=== PATIENT | female | born 1940 | race Caucasian/White ===

== ENCOUNTER → 2016-08-13 | Outpatient (CLI) | payer OTHER ==
[~2016-08-13] MED LIST: AMOX500C3 PO; ASCA500 PO; ASPEC81 PO; CALC500C70 PO; CEPH500C2 PO; CHOL100010 PO; CNT PO; FLNIN NAE; HYDC25 PO; LISI5TAB3 PO; LXT; OMEG10007 PO; OXYC-57 PO; OXYSR10 PO; PRAV20TA PO; VLSCR15; XRL10 PO; [UNRECOGNIZED DRUG - OTHER]; garlic
--- NOTE | 2016-08-13 15:07 | MAMMOGRAPHY REPORT ---
BILATERAL DIGITAL SCREENING MAMMOGRAM TOMOSYNTHESIS WITH CAD: 08/13/2016 CLINICAL HISTORY: Routine screening. Patient has no complaints. TECHNIQUE: Breast tomosynthesis in addition to standard 2D mammography was performed. Current study was also evaluated with a Computer Aided Detection (CAD) system. COMPARISON: Comparison is made to exams dated: 08/08/2015 mammogram, 08/06/2014 mammogram, 08/02/2013 mammogram, 08/01/2012 ultrasound, 08/01/2012 mammogram, and 11/23/2011 mammogram - [facility]. BREAST COMPOSITION: The tissue of both breasts is heterogeneously dense, which may obscure small ma sses. FINDINGS: No suspicious masses, calcifications, or areas of architectural distortion are noted in e ither breast. There has been no significant interval change compared to prior exams. A linear scar marker denotes a scar on the right upper inner breast. Bilateral benign appearing calcifications ar e not significantly changed. A biopsy marker clip is again noted in the left upper outer quadrant. Bilateral circumscribed benign appearing masses are stable compared to prior exams. IMPRESSION: ACR BI-RADS CATEGORY 2: BENIGN There is no mammographic evidence of malignancy. A 1 year screening mammogram is recommended. The p atient will receive written notification of the results. Approximately 10% of breast cancers are not detected with mammography. A negative mammographic repor t should not delay biopsy if a clinically suggestive mass is present. Suzy Edwards M.D. /:08/13/2016 12:35:35 Assistant Scientist: Arin BANEGAS)(Amadeo), [facility] letter sent: Normal 1/2 BI-RADS Code: ACR BI-RADS Category 2: Benign
== END | disposition home or self-care (01) ==
LOC: C.MAMM 10:05
PROVIDERS: ATTEND Family Medicine
DX: Z12.31 Encounter for screening mammogram for malignant neoplasm of breast (principal)

== ENCOUNTER → 2016-10-08 | Outpatient (CLI) | payer OTHER ==
--- NOTE | 2016-10-08 12:19 | DIAGNOSTIC IMAGING REPORT ---
ULTRASOUND BILATERAL LOWER EXTREMITY VENOUS CLINICAL HISTORY: Nonhealing lower extremity wound. COMPARISON STUDY: Left lower extremity venous ultrasound dated 03/08/2006. TECHNIQUE: Real-time, grayscale, and color Doppler sonography of the deep veins of the right and left lower extremity was performed from the inguinal crease to the calf. Compression and augmentation were utilized. FINDINGS: There is no sonographic evidence of deep venous thrombosis identified in the right or left lower extremity. The common femoral, superficial femoral, and popliteal veins are patent and normally compressible bilaterally. The greater saphenous vein and the profunda femoris vein at the junction with the common femoral vein are clear in both legs. The visualized calf veins are patent bilaterally. No evidence of venous reflux is identified. IMPRESSION: 1. There is no sonographic evidence of deep venous thrombosis identified in the right or left lower extremity. 2. No evidence of venous reflux was seen during the examination. Electronically signed by: Riky Palacios M.D. 10/08/2016 12:18 PM Dictated Date/Time: 10/08/2016 12:17 PM
--- NOTE | 2016-12-10 09:23 | CODING QUERY MEDICAL NECESSITY ---
SUPPORTING DIAGNOSIS NEEDED Dr. Burgess, A supporting diagnosis is required for the test/procedure performed on this patient in order for us to be reimbursed by the patient's insurance. Please provide a supporting diagnosis for the following test/procedure listed below next to the test name along with your signature. *If there is no additional diagnosis for this patient that would support the following test/procedure please document that below next to the test/procedure. Test(s)/Procedure(s) that require a supporting diagnosis: * ([id number]) VENOUS REFLUX LWR EXT BILAT DIAGNOSIS: DATE OF SERVICE: 10/08/16 Provider Signature: Date: Thank you Kevyn Watson Health Information Management Once completed, please kindly fax back to [phone] For questions please call [phone]
== END | disposition home or self-care (01) ==
LOC: C.ULTR 11:36
PROVIDERS: ATTEND Emergency Medicine
DX: S81.802A Unspecified open wound, left lower leg, initial encounter (principal); X58.XXXA Exposure to other specified factors, initial encounter; I87.2 Venous insufficiency (chronic) (peripheral)

== ENCOUNTER → 2017-08-19 | Outpatient (CLI) | payer OTHER ==
[~2017-08-19] MED LIST changes: -AMOX500C3 PO; -CEPH500C2 PO
--- NOTE | 2017-08-20 07:46 | MAMMOGRAPHY REPORT ---
BILATERAL DIGITAL SCREENING MAMMOGRAM TOMOSYNTHESIS WITH CAD: 08/19/2017 CLINICAL HISTORY: Routine screening. Patient has no complaints. TECHNIQUE: Breast tomosynthesis in addition to standard 2D mammography was performed. Current study was also evaluated with a Computer Aided Detection (CAD) system. COMPARISON: Comparison is made to exams dated: 08/13/2016 mammogram, 08/08/2015 mammogram, 08/06/2014 ma mmogram, 08/02/2013 mammogram, 08/01/2012 mammogram, and 07/30/2011 mammogram - [facility]. BREAST COMPOSITION: The tissue of both breasts is heterogeneously dense, which may obscure small mas ses. FINDINGS: No suspicious masses, calcifications, or areas of architectural distortion are noted in ei ther breast. There has been no significant interval change compared to prior exams. Scattered bilate ral benign-appearing calcifications are not significantly changed. A biopsy marker clip is again not ed within the left upper outer quadrant. A linear scar marker denotes a scar on the right superior b reast. Small circumscribed benign-appearing masses noted bilaterally are not significantly changed. IMPRESSION: ACR BI-RADS CATEGORY 2: BENIGN There is no mammographic evidence of malignancy. A 1 year screening mammogram is recommended. The pa tient will receive written notification of the results. Approximately 10% of breast cancers are not detected with mammography. A negative mammographic report should not delay biopsy if a clinically suggestive mass is present. Suzy Edwards M.D. ah/:08/19/2017 15:19:16 Box Feeder: Rekha WIGGINS(R)(M), [facility] letter sent: Normal 1/2 BI-RADS Code: ACR BI-RADS Category 2: Benign
== END | disposition home or self-care (01) ==
LOC: C.MAMM 09:50
PROVIDERS: ATTEND Family Medicine
DX: Z12.31 Encounter for screening mammogram for malignant neoplasm of breast (principal); Z85.3 Personal history of malignant neoplasm of breast

== ENCOUNTER 2019-07-04 16:34 | Inpatient (IN) ==
[2019-07-04] MEDS ORDERED: fentaNYL citrate 100 MCG/2 ML VIAL ONE ×2 (16:41→18:18)
[2019-07-04] MEDS ORDERED: LIDOCAINE HCL 2% 2 ML VIAL/AMP(20MG/ML) INFIL ONE (16:41)
[2019-07-04] MEDS ORDERED: ONDANSETRON INJ 2 MG/ML 2 ML VIAL ONE (16:41)
[2019-07-04] MEDS ORDERED: PROPOFOL IV EMULSION 10 MG/ML 20 ML VIAL IV ONE (16:41)
[2019-07-04] MEDS ORDERED: ePHEDrine sulfate 50 MG/ML SYR ONE (16:41)
--- NOTE | 2019-07-04 17:04 | Anesthesiology Consultation ---
Date of Service July 04, 2019 Assessment & Plan (1) Encounter for pre-operative examination: Chart Review Chart Review: Acceptable Risk for Surgery History Surgery Operation Date: 07/04/19 16:05 Proposed Procedures p Abdominal Wound Incision and Drainage - Harry Bourne MD Allergies Allergy/AdvReac Type Severity Reaction Status Date / Time Sulfa (Sulfonamide Allergy Intermediate HIVES Verified 06/26/19 13:29 Antibiotics) adhesive AdvReac Mild SKIN Verified 06/26/19 13:29 BECOMES RED tramadol AdvReac Mild LIGHTHEADED Verified 06/26/19 13:29 AND DIZZY Medications Home Medications Medication Instructions Recorded Confirmed Last Taken Calcium 600 + D(3) 1 cap PO BID 06/15/19 06/26/19 06/25/19 04:00 Centrum Silver Women 1 tab PO QAM 06/15/19 06/26/19 06/25/19 04:00 Sharmila-C with Bioflavonoids 1 tab PO QAM 06/15/19 06/26/19 06/25/19 04:00 Glucosamine Chondroitin 1 cap PO BID 06/15/19 06/26/19 06/19/19 Heartburn Relief 1 tab PO QAM 06/15/19 06/26/19 Unknown Laxative Pills 25 mg PO QPM 06/15/19 06/26/19 06/25/19 21:00 Premarin 0.625 mg VAGINAL DAILY PRN 06/15/19 06/26/19 06/12/19 Probiotic 1 cell PO QAM 06/15/19 06/26/19 06/25/19 04:00 Stool Softener 50 mg PO QPM 06/15/19 06/26/19 06/25/19 22:00 alendronate 70 mg PO WK 06/15/19 06/26/19 06/14/19 aspirin [Aspirin Low Dose] 81 mg PO 1600 06/15/19 06/26/19 06/21/19 estradiol 1 pump TRANSDERMAL 2XWK 06/15/19 06/26/19 06/22/19 fluocinonide 1 applic TOPICAL BID PRN 06/15/19 06/26/19 Unknown fluticasone propionate 2 spray INTRANASAL QAM 06/15/19 06/26/19 06/25/19 20:00 furosemide 40 mg PO Q3D 06/15/19 06/26/19 06/25/19 garlic 1,000 mg PO BID 06/15/19 06/26/19 06/25/19 18:00 hydrocortisone [Proctozone-HC] 1 applic AL BID PRN 06/15/19 06/26/19 06/26/19 08:00 lisinopril-hydrochlorothiazide 1 tab PO QAM 06/15/19 06/26/19 06/25/19 04:00 lysine [L-Lysine] 1,000 mg PO QAM 06/15/19 06/26/19 06/25/19 04:00 meclizine 12.5 mg PO BID PRN 06/15/19 06/26/19 Unknown omega 9-dhp-jpx-fish oil [Fish Oil] 1 cap PO BID 06/15/19 06/26/19 06/19/19 pravastatin 20 mg PO HS 06/15/19 06/26/19 06/25/19 21:00 Tagamet HB 1 tabs PO DAILY 06/26/19 06/26/19 06/25/19 04:00 oxycodone-acetaminophen [Percocet] 1 tab PO Q6H PRN #5 tab 06/27/19 Unknown NPO Date Last Intake of Fluids: 07/04/19 Time Last Intake of Fluids: 13:30 Date Last Intake of Solids: 07/04/19 Time Last Intake of Solids: 08:00 Past Medical History Medical History Environmental allergies GERD (gastroesophageal reflux disease) Hiatal hernia Hx of vertigo HX: breast cancer right Hyperlipidemia Hypertension Osteoporosis Past Family History Family History Sister Family history of diabetes mellitus Mother Family history of diabetes mellitus Past Surgical History Surgical History History of left knee replacement History of partial hysterectomy Hx of bilateral cataract extraction Hx of breast surgery lumpectomy - Hx of colonoscopy Social History Smoking Status: Former smoker Hx Alcohol Use: No Hx Substance Use: No Testing Laboratory Results Jun 14, 2019 WBC 8 Hb 14 Hct 44 Plt 328 K+ 3.7 Creat 0.7 Electrocardiogram Date: 06/14/19 Findings: + NSR @ (75 PAC's)
[2019-07-04] MEDS ORDERED: PIPERACILL/TAZOBAC CONSULT ACTIVE PRN (17:27)
[2019-07-04] MEDS ORDERED: PIPERACILLIN/TAZOBACTAM 3.375 GM in DEXTROSE 5% 100 ML/100 ML BAG IV STA (17:27)
--- NOTE | 2019-07-04 17:29 | History & Physical Report ---
Date of Service July 04, 2019 Assessment & Plan (1) S/P repair of ventral hernia: (2) Wound infection: This patient has a wound infection. She is going to need to have her wound opened and have it drained and irrigated. She will then need to have a wound VAC placed. I explained to her the procedure and the possible complications and answered her questions. Her was there. She signed a consent form. History of Present Illness Chief Complaint: Abdominal pain and fever Primary Care Provider: Harry Steele MD This is an 78-year-old female that presented to the office for a follow-up after repair of a large ventral hernia 8 days ago. She had developed some pain and beginning erythema 3 days ago. She then developed fever. She has not had any drainage from the incision. She has had no nausea or vomiting. She has not had any dysuria or hematuria. She denies melena and hematochezia. In the office the wound was probed with expression of purulent material. Cultures were obtained. Allergies Allergy/AdvReac Type Severity Reaction Status Date / Time Sulfa (Sulfonamide Allergy Intermediate HIVES Verified 07/04/19 17:09 Antibiotics) adhesive AdvReac Mild SKIN Verified 07/04/19 17:09 BECOMES RED tramadol AdvReac Mild LIGHTHEADED Verified 07/04/19 17:09 AND DIZZY Home Medications Home Medications Medication Instructions Recorded Confirmed Type Calcium 600 + D(3) 1 cap PO BID 06/15/19 07/04/19 History Centrum Silver Women 1 tab PO QAM 06/15/19 07/04/19 History Sharmila-C with Bioflavonoids 1 tab PO QAM 06/15/19 07/04/19 History Glucosamine Chondroitin 1 cap PO BID 06/15/19 07/04/19 History Heartburn Relief 1 tab PO QAM 06/15/19 07/04/19 History Laxative Pills 25 mg PO QPM 06/15/19 07/04/19 History Premarin 0.625 mg VAGINAL DAILY PRN 06/15/19 07/04/19 History Probiotic 1 cell PO QAM 06/15/19 07/04/19 History Stool Softener 50 mg PO QPM 06/15/19 07/04/19 History alendronate 70 mg PO WK 06/15/19 07/04/19 History aspirin [Aspirin Low Dose] 81 mg PO 1600 06/15/19 07/04/19 History estradiol 1 pump TRANSDERMAL 2XWK 06/15/19 07/04/19 History fluocinonide 1 applic TOPICAL BID PRN 06/15/19 07/04/19 History fluticasone propionate 2 spray INTRANASAL QAM 06/15/19 07/04/19 History furosemide 40 mg PO Q3D 06/15/19 07/04/19 History garlic 1,000 mg PO BID 06/15/19 07/04/19 History hydrocortisone [Proctozone-HC] 1 applic [place] BID PRN 06/15/19 07/04/19 History lisinopril-hydrochlorothiazide 1 tab PO QAM 06/15/19 07/04/19 History lysine [L-Lysine] 1,000 mg PO QAM 06/15/19 07/04/19 History meclizine 12.5 mg PO BID PRN 06/15/19 07/04/19 History omega 3-wwu-qcx-fish oil [Fish Oil] 1 cap PO BID 06/15/19 07/04/19 History pravastatin 20 mg PO HS 06/15/19 07/04/19 History Tagamet HB 1 tabs PO DAILY 06/26/19 07/04/19 History oxycodone-acetaminophen [Percocet] 1 tab PO Q6H PRN #5 tab 06/27/19 07/04/19 Rx Past Med/Surg History Medical History (Updated 07/04/19 @ 17:28 by Harry Bourne MD) Environmental allergies GERD (gastroesophageal reflux disease) Hiatal hernia Hx of vertigo HX: breast cancer right Hyperlipidemia Hypertension Osteoporosis Surgical History (Updated 07/04/19 @ 17:26 by Harry Bourne MD) History of left knee replacement History of partial hysterectomy History of ventral hernia repair Hx of bilateral cataract extraction Hx of breast surgery lumpectomy - Hx of colonoscopy Family History Sister Family history of diabetes mellitus Mother Family history of diabetes mellitus Social History Preferred Language: Surinamese Communication Ability: Effective Beliefs That Will Affect Care: None Current Living Situation: Spouse Feels Safe at Home: Yes Smoking Status: Former smoker Second Hand Exposure: No ; Hx Alcohol Use: No Hx Substance Use: No Review of Systems Review of Systems: All systems reviewed & are unremarkable except as noted in HPI & below Physical Exam Constitutional: no acute distress Respiratory: normal respiratory effort, lungs clear to auscultation Cardiovascular: Rate/Rhythm: regular rate and regular rhythm Gastrointestinal (Abdomen): Inspection/Auscultation: normal bowel sounds; abdomen not distended Percussion/Palpation: + abdomen tender and abdomen soft Erythema across abdomen extending from iliac crest to iliac crest with purulent drainage expressed Skin: no rashes, warm and dry Lymphatic: no cervical or axillary lymphadenopathy
[2019-07-04] MEDS ORDERED: KETOROLAC 30 MG/ML VIAL IV PRN (17:40)
[2019-07-04] MEDS ORDERED: ATROPINE SULFATE 0.1 MG/ML 10ML SYR IV PRN (17:40)
[2019-07-04] MEDS ORDERED: LABETALOL HCL IV 5 MG/ML 20ML IV PRN (17:40)
[2019-07-04] MEDS ORDERED: ONDANSETRON INJ 2 MG/ML 2 ML VIAL IV PRN ×2 (17:40→19:27)
[2019-07-04] MEDS ORDERED: HYDROmorphone INJ 1 MG/ML SYRINGE IV PRN (17:40)
--- NOTE | 2019-07-04 18:26 | Post Operative Brief Note ---
Immediate Post Op Note v1 Date of Surgery July 04, 2019 Pre & Post Diagnosis Operation Date: 07/04/19 16:05 Pre-Op Diagnosis: Abdominal Wound Post-Op Diagnosis: Abdominal Wound I identified the patient and participated in the time-out.: Yes Procedure Operation Date: 07/04/19 16:05 Actual Procedures p Abdominal Wound Incision and Drainage - Harry Bourne MD Surgeon Harry Bourne MD Cruise Coordinator None Estimated Blood Loss 5 Findings Consistent with Post-Op Diagnosis Specimens Cultures Anesthesia Type General Complications none
--- NOTE | 2019-07-04 19:21 | Anesthesiology Progress Note ---
Date of Service July 04, 2019 Anesthesia Post Procedure Vital Signs Vital Signs: Temp Pulse Pulse Resp BP Pulse Ox 07/04/19 19:10 38.0 C H 88 20 125/75 98 07/04/19 19:00 86 23 121/59 L 96 07/04/19 18:50 95 H 24 155/93 H 99 07/04/19 18:40 90 20 147/73 H 100 07/04/19 18:33 37.0 C 92 H 16 161/75 H 99 07/04/19 17:20 38.8 C H 96 H 20 156/71 H 96 Pain Intensity Medial Abdomen: Pain Intensity: 0 Transfer of Care Handoff Completed per policy Notes Mental Status: alert / awake / arousable and participated in evaluation Patient Amnestic to Procedure: Yes Nausea / Vomiting: adequately controlled Pain: adequately controlled Airway Patency, RR, SpO2: stable & adequate BP & HR: stable & adequate Hydration State: stable & adequate Anesthetic Complications: no major complications apparent and Pt Satisfied with anesthetic care
[2019-07-04] MEDS ORDERED: OXYCODONE/ACETAMINOPHEN 5mg/325mg TAB PO PRN (19:27)
[2019-07-04] MEDS ORDERED: MoRPHine SULFATE 4 MG/ML 1 ML CARP\\VIAL IV PRN (19:27)
[2019-07-04] MEDS: ACETAMINOPHEN 500 MG TAB PO PRN (20:33)
[2019-07-04] MEDS: SENNA 8.6 MG TAB PO SCH (20:37)
[2019-07-04] MEDS: DOCUSATE SODIUM 100 MG CAP PO SCH (20:37)
[2019-07-04] MEDS: PIPERACILLIN/TAZOBACTAM 3.375 GM in DEXTROSE 5% 100 ML IV SCH (21:38)
[2019-07-04] MEDS: SODIUM CHLORIDE 0.9% 1000ML 1,000 ML IV SCH (22:35)
[2019-07-05] MEDS: ACETAMINOPHEN 500 MG TAB PO PRN ×3 (04:13→23:35)
--- NOTE | 2019-07-05 05:09 | Operative Report ---
DATE OF OPERATION: 07/04/2019 PREOPERATIVE DIAGNOSIS: Wound infection. POSTOPERATIVE DIAGNOSIS: Wound infection. PROCEDURE: Incision and drainage, irrigation and packing of wound. SURGEON: Harry Bourne MD. FINDINGS: I opened the length of the incision and then had to extend that superiorly. There was a cavity pocket with purulent material. There was some extension laterally towards the left and the right and I had to make counter incisions there. Cultures were obtained. The mesh was exposed in the base of the wound, but there was no bowel exposed. TECHNIQUE: The patient was given a general anesthetic and the area was prepped and draped in the usual sterile fashion. The previous incision was opened sharply and then had to be extended superiorly. The mesh was identified in the base of the wound. There was a lot of purulence that was removed using suction. I then irrigated the wound. There was no evidence of intraabdominal extension of the abscess. I then was able to establish planes laterally left and right in the areas of dissection of the mesh and those spaces were opened to be sure there were no loculated collections. I then made counter incisions on each side and connected those incisions. Further irrigation was performed. The wound was packed with packing and brought out through the counter incisions as well. The estimated blood loss was 5 mL. Sponge, needle and instrument counts were correct prior to closure. The patient tolerated the surgical procedure without complication and was transferred to recovery. I attest to the content of the Intraoperative Record and any orders documented therein. Any exception s are noted below.
[2019-07-05] MEDS: PIPERACILLIN/TAZOBACTAM 3.375 GM in DEXTROSE 5% 100 ML IV SCH ×3 (05:37→21:29)
--- NOTE | 2019-07-05 08:03 | Surgery Progress Note ---
Date of Service July 05, 2019 Assessment & Plan (1) Wound infection: Packing removed Await wound care team, would like him to evaluate for placement of wound VAC Continue antibiotics Await cultures Encourage ambulation Subjective Postoperative day #9/postoperative day #1 status post repair of ventral hernia with I&D of wound infection Patient having very little pain Pain is controlled with only Tylenol Denies nausea and vomiting Tolerating clear liquids Physical Exam Gastrointestinal (Abdomen): Inspection/Auscultation: abdomen not distended Percussion/Palpation: abdomen soft Incision inspected He has already begun to have some contraction Remove packing Deeper tissues appear healthy No evidence of any necrotic tissue Skin erythema and has decreased Results & Data Vital Signs (Past 12 Hours) Vital Signs Temp Pulse Resp BP BP Pulse Ox 07/05/19 07:26 36.7 C 76 16 94/58 L 94 07/05/19 04:17 36.8 C 92 H 15 136/81 96 07/04/19 22:59 36.9 C 80 14 95/55 L 94 07/04/19 22:29 37.1 C 84 16 98/56 L 94 07/04/19 21:36 100/61 07/04/19 21:29 37.8 C H 90 18 84/53 L 93 07/04/19 20:28 37.6 C H 59 L 16 122/66 94 Laboratory Results CBC and BMP are pending Gram stain of wound material showed many white cells but no organisms, culture is pending
[2019-07-05] MEDS: SODIUM CHLORIDE 0.9% 1000ML 1,000 ML IV SCH ×2 (08:15→17:53)
[2019-07-05 08:52] LABS: Basophils # (auto) 0.02 K/uL (0-0.2); Basophils % (auto) 0.2 %; Eosinophils # (auto) 0.02 K/uL (0-0.5); Eosinophils % (auto) 0.2 %; Hematocrit (blood only) 28.5 % (37-47); Hemoglobin 9.3 g/dL (12.0-16.0); Immature Granulocytes # (auto) 0.06 K/uL (0.00-0.02); Immature Granulocytes % (auto) 0.5 %; Lymphocytes # (auto) 1.33 K/uL (1.2-3.4); Mean Corpuscular Hemoglobin 28.4 pg (25-34); Mean Corpuscular Hgb Conc 32.6 g/dL (32-36); Mean Corpuscular Volume 87.2 fL (80-100); Monocytes # (auto) 1.24 K/uL (0.11-0.59); Monocytes % (auto) 9.3 %; Neutrophils % (auto) 79.8 %; Platelet Count 385 K/uL (130-400); RDW Coefficient of Variation 13.9 % (11.5-14.5); RDW Standard Deviation 44.6 fL (36.4-46.3); Red Blood Count 3.27 M/uL (4.2-5.4); White Blood Count 13.27 K/uL (4.8-10.8)
[2019-07-05] MEDS: FLUTICASONE PROPIONATE NA SPR 16 GM BTL SCH (09:18)
[2019-07-05] MEDS: LACTOBACILLUS ACIDOPHILUS (FLORANEX) TAB PO SCH (09:18)
[2019-07-05] MEDS: LISINOPRIL/HCTZ 20/12.5MG 1 TAB TAB PO SCH (09:18)
[2019-07-05 09:25] LABS: BUN Creatinine Ratio 25.2 (10-20); Calcium 8.2 mg/dl (8.5-10.1); Creatinine Clr Calc Pharmacy 58.6 ml/min; Est GFR (African American) 93.2; Est GFR (Non-African American) 80.4
[2019-07-05] MEDS: SENNA 8.6 MG TAB PO SCH (20:48)
[2019-07-05] MEDS: DOCUSATE SODIUM 100 MG CAP PO SCH (20:48)
[2019-07-06] MEDS: SODIUM CHLORIDE 0.9% 1000ML 1,000 ML IV SCH ×2 (03:58→13:19)
[2019-07-06] MEDS: PIPERACILLIN/TAZOBACTAM 3.375 GM in DEXTROSE 5% 100 ML IV SCH ×3 (05:05→21:40)
[2019-07-06] MEDS: ACETAMINOPHEN 500 MG TAB PO PRN ×3 (07:32→23:58)
[2019-07-06] MEDS ORDERED: FUROSEMIDE 40 MG TAB PO SCH (09:00)
[2019-07-06] MEDS: FLUTICASONE PROPIONATE NA SPR 16 GM BTL SCH (09:09)
[2019-07-06] MEDS: LACTOBACILLUS ACIDOPHILUS (FLORANEX) TAB PO SCH (09:09)
[2019-07-06] MEDS: LISINOPRIL/HCTZ 20/12.5MG 1 TAB TAB PO SCH (09:10)
--- NOTE | 2019-07-06 16:21 | Surgery Progress Note ---
Date of Service July 06, 2019 Assessment & Plan (1) Wound infection: POD # 2 s/p incision and drainage of postoperative wound abscess now with wound vac vitals stable afebrile minimal pain Plan: [facility]patient [facility] cultures showing Klebsiella pneumoniae, enterococcus, and beta strep group B, sensitivities still pending OR culture showing pinpoint growth and reincubating Will consult Infectious disease to determine oral abx on discharge and duration of therapy given mesh placement Continue IV zosyn am BMP Discontinue IV fluids ambulate Miralax PO daily Discussed with Dr. Bourne who agrees with above. Subjective feeling good today pain minimal controlled with Tylenol no nausea or vomiting tolerating regular diet wound vac in place Physical Exam Constitutional: WD/WN, vitals as above no acute distress Respiratory: normal respiratory effort; no respiratory distress Gastrointestinal (Abdomen): Inspection/Auscultation: abdomen normal to inspection; abdomen not distended Percussion/Palpation: abdomen soft; abdomen nontender, no guarding and abdomen not rigid erythema improving wound vac present and to suction bloody serosanguineous output in wound vac canister Skin: no rashes, warm and dry Psychiatric: A+Ox3, euthymic affect Results & Data Vital Signs (Past 12 Hours) Vital Signs Temp Pulse Resp BP Pulse Ox 07/06/19 15:09 36.3 C L 72 16 123/77 96 07/06/19 07:58 36.6 C 72 17 109/65 96 Laboratory Results Microbiology 07/04/19 Unknown Gram Stain - Final Abdomen Aerobic and Anaerobic Culture - Preliminary Pin-point growth present, reincubating. OUTPATIENT CULTURE RESULTS ON 07/04/2019 ([facility]) KLEBSIELLA PNEUMONIAE ENTEROCOCCUS BETA STREP GROUP B SENSITIVITIES STILL PENDING
[2019-07-06] MEDS: POLYETHYLENE (MIRALAX) 17 GM PACK PO SCH (18:27)
[2019-07-06] MEDS: DOCUSATE SODIUM 100 MG CAP PO SCH (20:34)
[2019-07-06] MEDS: SENNA 8.6 MG TAB PO SCH (20:34)
[2019-07-07] MEDS: PIPERACILLIN/TAZOBACTAM 3.375 GM in DEXTROSE 5% 100 ML IV SCH ×2 (05:12→14:15)
[2019-07-07 06:44] LABS: Creatinine Clr Calc Pharmacy 88.5 ml/min; Est GFR (African American) 108.1; Est GFR (Non-African American) 93.3; Potassium 2.6 mmol/L (3.5-5.1)
--- NOTE | 2019-07-07 07:33 | Surgery Progress Note ---
Date of Service July 07, 2019 Assessment & Plan (1) Wound infection: Wound infection with wound VAC now in place Awaiting infectious disease consult regarding antibiotics Home care has been set up for wound VAC If antibiotics can be determined then she can be discharged with follow-up next week. Subjective Postop day #11 status post repair of ventral hernia, postop day #3 status post I&D of wound infection Had bowel movement yesterday and feels much much better than previous Denies nausea and vomiting Tolerating regular diet although appetite is not returned Passed bowels and is passing flatus Having very little abdominal pain Wound VAC in place with serosanguineous drainage Physical Exam Gastrointestinal (Abdomen): Inspection/Auscultation: + abdomen distended (Mild) Percussion/Palpation: + abdomen tender (Mild) and abdomen soft; no guarding Less erythema Wound VAC in place Results & Data Vital Signs (Past 12 Hours) Vital Signs Temp Pulse Resp BP Pulse Ox 07/06/19 23:05 36.9 C 72 16 113/71 96
[2019-07-07] MEDS: LISINOPRIL/HCTZ 20/12.5MG 1 TAB TAB PO SCH (08:55)
[2019-07-07] MEDS: LACTOBACILLUS ACIDOPHILUS (FLORANEX) TAB PO SCH (08:55)
[2019-07-07] MEDS: FLUTICASONE PROPIONATE NA SPR 16 GM BTL SCH (08:55)
[2019-07-07] MEDS: POLYETHYLENE (MIRALAX) 17 GM PACK PO SCH (08:56)
[2019-07-07] MEDS: POTASSIUM CHLORIDE / WTR 10 MEQ/100 ML PLCT IV SCH ×3 (09:06→12:49)
[2019-07-07] MEDS: ACETAMINOPHEN 500 MG TAB PO PRN ×2 (09:26→18:38)
[2019-07-07] MEDS ORDERED: POTASSIUM CHLORIDE 20 MEQ TABCR PO STA ×2 (12:26→15:13)
--- NOTE | 2019-07-07 13:03 | Infectious Disease Consult ---
Date of Consultation July 07, 2019 Assessment & Plan (1) Wound infection: continue IV zosyn for now, if outpaient culture sensitive, would suggest transitioning to po Augmentin 875mg po bid with food for min 21 days. vac care per surgery. History of Present Illness Attending Physician: Harry Bourne MD pt admitted after she developed redness, pain and fevers. recently had ventral hernia repair, 8 days prior to admission, culture reportedly done as outpt - growing K. pneumo, Enterococcus and GBS - sensitivities reportedly pending. OR culture here, anaerobic gnr and pending. went to OR on 07/05 for washout, mesh invovled, vac placed. she is currently on zosyn and tolerating well. oob to chair, eating and drinking, states she is planning to go home, no f/c. no abd pain, no n/v/d. no cp, sob, cough. wbc 13, creat 0.4. Allergies Allergy/AdvReac Type Severity Reaction Status Date / Time Sulfa (Sulfonamide Allergy Intermediate HIVES Verified 07/04/19 17:09 Antibiotics) adhesive AdvReac Mild SKIN Verified 07/04/19 17:09 BECOMES RED tramadol AdvReac Mild LIGHTHEADED Verified 07/04/19 17:09 AND DIZZY Home Medications Home Medications Medication Instructions Recorded Confirmed Type Calcium 600 + D(3) 1 cap PO BID 06/15/19 07/04/19 History Centrum Silver Women 1 tab PO QAM 06/15/19 07/04/19 History Sharmila-C with Bioflavonoids 1 tab PO QAM 06/15/19 07/04/19 History Glucosamine Chondroitin 1 cap PO BID 06/15/19 07/04/19 History Heartburn Relief 1 tab PO QAM 06/15/19 07/04/19 History Laxative Pills 25 mg PO QPM 06/15/19 07/04/19 History Premarin 0.625 mg VAGINAL DAILY PRN 06/15/19 07/04/19 History Probiotic 1 cell PO QAM 06/15/19 07/04/19 History Stool Softener 50 mg PO QPM 06/15/19 07/04/19 History alendronate 70 mg PO WK 06/15/19 07/04/19 History aspirin [Aspirin Low Dose] 81 mg PO 1600 06/15/19 07/04/19 History estradiol 1 pump TRANSDERMAL 2XWK 06/15/19 07/04/19 History fluocinonide 1 applic TOPICAL BID PRN 06/15/19 07/04/19 History fluticasone propionate 2 spray INTRANASAL QAM 06/15/19 07/04/19 History furosemide 40 mg PO Q3D 06/15/19 07/04/19 History garlic 1,000 mg PO BID 06/15/19 07/04/19 History hydrocortisone [Proctozone-HC] 1 applic [place] BID PRN 06/15/19 07/04/19 History lisinopril-hydrochlorothiazide 1 tab PO QAM 06/15/19 07/04/19 History lysine [L-Lysine] 1,000 mg PO QAM 06/15/19 07/04/19 History meclizine 12.5 mg PO BID PRN 06/15/19 07/04/19 History omega 1-gaj-elh-fish oil [Fish Oil] 1 cap PO BID 06/15/19 07/04/19 History pravastatin 20 mg PO HS 06/15/19 07/04/19 History Tagamet HB 1 tabs PO DAILY 06/26/19 07/04/19 History oxycodone-acetaminophen [Percocet] 1 tab PO Q6H PRN #5 tab 06/27/19 07/04/19 Rx Patient History Medical History Environmental allergies GERD (gastroesophageal reflux disease) Hiatal hernia Hx of vertigo HX: breast cancer right Hyperlipidemia Hypertension Osteoporosis Surgical History History of left knee replacement History of partial hysterectomy History of ventral hernia repair Hx of bilateral cataract extraction Hx of breast surgery lumpectomy - Hx of colonoscopy Family History Sister Family history of diabetes mellitus Mother Family history of diabetes mellitus Social History Preferred Language: Yemeni Communication Ability: Effective Bobbin Presser Required: No Beliefs That Will Affect Care: None marital status: Current Living Situation: Spouse Other Information That Helps Us Care for You: No Feels Safe at Home: Yes Safety Concerns: Feels Safe At This Time Smoking Status: Former smoker Tobacco Type: cigarettes ; Smoking End Date: 1995 ; Second Hand Exposure: No ; Hx Alcohol Use: No Hx Substance Use: No Review of Systems Review of Systems: All systems reviewed & are unremarkable except as noted in HPI & below Physical Exam Constitutional: WD/WN, vitals as above Eyes: PERRL, conjunctivae normal, anicteric sclerae ENMT: external ear and nose normal, oropharynx normal Neck: normal visual inspection Respiratory: normal respiratory effort, lungs clear to auscultation Cardiovascular: RRR, no murmur, no edema Gastrointestinal (Abdomen): normal bowel sounds, soft, nontender, no hepatosplenomegaly Musculoskeletal: no cyanosis or clubbing, extremities motor strength 5/5 Skin: no rashes, warm and dry Psychiatric: A+Ox3, euthymic affect Results & Data ([facility]) Vital Signs (Past 12 Hours) Vital Signs Temp Pulse Resp BP Pulse Ox 07/07/19 07:49 36.7 C 74 21 110/72 95 Laboratory Results Microbiology 07/04/19 Unknown Abdomen Gram Stain - Final 07/04/19 Unknown Abdomen Aerobic and Anaerobic Culture - Preliminary Probable jasmin gram neg bacilli PG Care Time/CCT Total # of Minutes Spent Total Time Spent with Patient: Total time spent is greater than 50% in coordination of care (as documented) at patient's floor/unit and/or counseling patient: Coding Level of Care Code 14135 Inpt Consult Level 4 Diagnoses Wound infection T14.8XXA; L08.9
--- NOTE | 2019-07-10 09:36 | Discharge Summary ---
Date of Service July 10, 2019 Admission HPI Per Admitting Provider This is an 78-year-old female that presented to the office for a follow-up after repair of a large ventral hernia 8 days ago. She had developed some pain and beginning erythema 3 days ago. She then developed fever. She has not had any drainage from the incision. She has had no nausea or vomiting. She has not had any dysuria or hematuria. She denies melena and hematochezia. In the office the wound was probed with expression of purulent material. Cultures were obtained. Principal Diagnosis Wound Infection Discharge Data Allergies Allergy/AdvReac Type Severity Reaction Status Date / Time Sulfa (Sulfonamide Allergy Intermediate HIVES Verified 07/04/19 17:09 Antibiotics) adhesive AdvReac Mild SKIN Verified 07/04/19 17:09 BECOMES RED tramadol AdvReac Mild LIGHTHEADED Verified 07/04/19 17:09 AND DIZZY Consultations 07/05/19 08:48 Consult Case Management - Discharge Planning Routine 02 15:00 Consult Infectious Diseases Routine Procedures Performed Operation Date: 07/04/19 16:05 Actual Procedures p Abdominal Wound Incision and Drainage - Harry Bourne MD Hospital Course (1) Wound infection: Patient was admitted to medical/surgical floor from outpatient clinic given wound abscess and abdominal wall cellulitis POD # 8 from ventral hernia repair with mesh. Patient was taken to operating room for incision, drainage, and wash out. Wound was kept open and packing placed. She was started on IV Zosyn upon admission. POD # 1 vitals stable, no longer afebrile. Pain was controlled. Packing was removed and wound care consulted for wound vac placement. Diet advanced as tolerated. POD # 2 vitals stable, pain controlled and minimal, tolerating diet. Wound vac placed. POD # 3 vitals stable, afebrile, pain controlled, wound vac to suction. Outpatient [facility] cultures showing Klebsiella pneumoniae, enterococcus, and beta strep group B, all sensitive to Augmentin. Infectious disease consulted, recommend Augmentin 875 mg PO BID for at least 21 days depending on sensitivities. Wound care and home health nursing was set up for patient. She was discharged home on POD # 3 in stable condition. (2) Hypokalemia: Patient was hypokalemic with potassium of 2.6 on POD # 3. Potassium was 3.0 on day of admission. IV Potassium 20 mEQ given on POD # 3. Repeat potassium was only 2.8 after IV administration. 40 mEq of oral potassium x 2 was given. Patient was asymptomatic from hypokalemic standpoint. Likely secondary to diuretic administration, IV fluid hydration, and decrease oral intake over the course of her illness. She was advised to contact her PCP office on Wednesday in regards to her potassium as well as increase potassium intake in her diet. Total Time Total Time Spent Total Time Spent (In Minutes): 40 Total Time Includes: Examination of the Patient, Discharge Planning and Medication Reconciliation Discharge Plan Discharge Items Patient Disposition: Home - Home Health Services Reason For Visit: WOUND INFECTION Discharge Diagnosis: wound infection placement of wound vac Hypokalemia (low potassium) Activity: Per Instructions section Non-emergency contact: Primary Care Provider and Surgeon Call non-emergency contact if: you have any medication questions, your pain is not controlled, your pain is worsening, your pain is concerning for you, you have a fever, your temperature is above 101, your wound has increased redness, your wound has increased drainage and your wound pain has increased Follow-up/Referrals: Harry Steele MD [Primary Care Provider] - 07/11/19 10:45 am (with Dr Vera) Diet: Regular Addtl Attending Provider Instructions: ACTIVITY RECOMMENDATIONS: * Walk as much as possible. * No heavy lifting (>10 lbs.) for at least 4-6 weeks or until cleared by surgeon. SPECIAL CARE INSTRUCTIONS: * Home health nursing will help with your wound vac changes and concerns. * May shower from surgical standpoint but follow instructions with wound vac nurse. * Call the surgeon's office with any questions or concerns - (ex. temperature higher than 101 degrees F, excessive bleeding or pain). DIET: * May resume regular diet. * Recommend diet with potassium rich foods such as bananas, oranges, cantaloupe, honeydew, apricots, grapefruit (some dried fruits, such as prunes, raisins, and dates, are also high in potassium), Cooked spinach, Cooked broccoli,Potatoes, Sweet potatoes, Leafy greens MEDICATIONS: Resume previous medications unless instructed otherwise by your surgeon. * Tylenol 1000 mg every 8 hours as needed. DO NOT EXCEED 3,000 mg of Tylenol in 24 hour period. If you can reduce the dose down to 500 mg every 4-6 hours as your pain improves and is more tolerable that would be recommended. * You will be given oral antibiotic to take for total of 21 days. Please finish entire course as prescribed. * Continue your Colace and Sennokot to help prevent constipation. Recommend increasing water in your diet, fiber in your diet, and fiber supplementation daily such as Metamucil or Benefiber. FOLLOW UP VISIT: If not already scheduled, please call the office to schedule a one week follow- up appointment. Office number Your potassium was low during your hospital stay. This could of been due to a decrease in your dietary intake of potassium during your recent illness or because of your diuretic (water pill) medications. You should follow-up with your primary care physician in regards to your potassium levels and diuretics (water pills). I would recommend calling your primary care office on Wednesday to set up follow-up visit and to possibly check your potassium levels. Pending Studies at Discharge: No Stand-Alone Forms: My [facility], Smoking Cessation Medications and DC Order Prescriptions: New amoxicillin-pot clavulanate [Augmentin] 875-125 mg tablet 1 tab PO BID Qty: 42 RF: 0 Continued furosemide 40 mg Tablet 40 mg PO Q3D RF: 0 lisinopril-hydrochlorothiazide 20-12.5 mg Tablet 1 tab PO QAM RF: 0 alendronate 70 mg Tablet 70 mg PO WK RF: 0 meclizine 12.5 mg Tablet 12.5 mg PO BID PRN (Reason: Vertigo) RF: 0 Stool Softener 50 mg Capsule 50 mg PO QPM RF: 0 aspirin [Aspirin Low Dose] 81 mg Tablet,Delayed Release (Dr/Ec) 81 mg PO 1600 RF: 0 garlic 1,000 mg Capsule 1,000 mg PO BID RF: 0 hydrocortisone [Proctozone-HC] 2.5 % Cream With Perineal Applicator 1 applic [place] BID PRN (Reason: Hemorrhoids) RF: 0 Premarin 0.625 mg/gram Cream 0.625 mg VAGINAL DAILY PRN (Reason: IRRITATION) RF: 0 pravastatin 20 mg Tablet 20 mg PO HS RF: 0 Heartburn Relief 160-105 mg Tablet,Chewable 1 tab PO QAM RF: 0 fluocinonide 0.05 % Cream 1 applic TOPICAL BID PRN (Reason: SKIN ISSUES) RF: 0 lysine [L-Lysine] 500 mg Tablet 1,000 mg PO QAM RF: 0 fluticasone propionate 50 mcg/actuation [place],Suspension 2 spray INTRANASAL QAM RF: 0 Laxative Pills 25 mg Tablet 25 mg PO QPM RF: 0 Calcium 600 + D(3) 600 mg calcium- 200 unit Capsule 1 cap PO BID RF: 0 estradiol 0.87 gram/actuation Gel In Metered-Dose Pump 1 pump TRANSDERMAL 2XWK RF: 0 Centrum Silver Women 8 mg iron-400 mcg-300 mcg Tablet 1 tab PO QAM RF: 0 Sharmila-C with Bioflavonoids 1,000-200 mg Tablet 1 tab PO QAM RF: 0 Probiotic 10 billion cell Capsule 1 cell PO QAM RF: 0 omega 0-ang-gvy-fish oil [Fish Oil] 360-1,200 mg Capsule,Delayed Release(Dr/Ec) 1 cap PO BID RF: 0 Glucosamine Chondroitin 550-30-1 mg Capsule 1 cap PO BID RF: 0 Tagamet HB 1 tabs PO DAILY RF: 0 Discontinued oxycodone-acetaminophen [Percocet] 5-325 mg tablet 1 tab PO Q6H PRN (Reason: pain) Qty: 5 RF: 0 Discharge Orders: Discharge Order (Routine); Ordered 07/07/19 Ordered By: Nicole Ta Admission Data Admit Date/Time: 07/04/19 18:37 Attending Provider: Harry Bourne Admit Provider: Harry Bourne Primary Care Provider: Harry Steele Other Providers: [facility] ; Jasmin Cazares Other Interventions: Discharge Summary Assessment (RN) Last Done: 07/07/19 19:00 DC Date/Time DO NOT enter until pt leaves facility: 07/07/19 19:28
== END 2019-07-07 19:28 | disposition home health service (06) | DRG 858 ==
LOC: ASU 16:34 → 3W 18:37